=== PATIENT | male | born 1980 | race African-American/Black ===

== ENCOUNTER → 2018-06-20 | Outpatient (CLI) | payer BC ==
--- NOTE | 2018-06-20 10:05 | REP ---
Chest two views HISTORY: Hypertension Comparison: None The lungs are clear. The heart is normal in size. The pulmonary vasculature is normal in appearance. The bony structure is intact. IMPRESSION: No acute disease. Electronically Signed by Steve Braswell MD 06/20/2018 09:56 A
[2018-06-20 10:18] LABS: HEMATOCRIT 45.3 % (42.0-52.0); HEMOGLOBIN 15.3 g/dl (13.5-17.5); MEAN CORPUSCULAR HEMOGLOBIN 30.5 pg (27.0-33.0); MEAN CORPUSCULAR HGB CONC 33.8 g/dl (32.0-36.5); MEAN CORPUSCULAR VOLUME 90.2 fl (80.0-96.0); PLATELET COUNT, AUTOMATED 218 10^3/uL (150-450); RED BLOOD COUNT 5.02 10^6/uL (4.30-6.10); WHITE BLOOD COUNT 4.1 10^3/uL (4.0-10.0)
[2018-06-20 10:46] LABS: ALBUMIN 4.3 GM/DL (3.2-5.2); ALT/SGPT 22 U/L (12-78); BILIRUBIN,TOTAL 1.2 MG/DL (0.2-1.0); BLOOD UREA NITROGEN 11 MG/DL (7-18); CALCIUM LEVEL 9.1 MG/DL (8.5-10.1); CARBON DIOXIDE LEVEL 28 MEQ/L (21-32); CHLORIDE LEVEL 100 MEQ/L (98-107); CHOLESTEROL LEVEL 234 MG/DL (<200); CHOLESTEROL RISK RATIO 4.875 (<5); CREATININE FOR GFR 1.09 MG/DL (0.70-1.30); GLOMERULAR FILTRATION RATE > 60.0 (>60); GLUCOSE, FASTING 137 MG/DL (70-100); HDL CHOLESTEROL 48 MG/DL (>40); LDL CHOLESTEROL 166 MG/DL (<100); NON-HDL-C 186 MG/DL; POTASSIUM SERUM 4.3 MEQ/L (3.5-5.1); SODIUM LEVEL 137 MEQ/L (136-145); TOTAL PROTEIN 8.1 GM/DL (6.4-8.2); TRIGLYCERIDES LEVEL 102 MG/DL (<150)
[2018-06-20 10:47] LABS: TOTAL 25(OH) VITAMIN D 23.8 NG/ML (30.0-100.0)
[2018-06-20 10:48] LABS: TESTOSTERONE 496 NG/DL (241-827)
[2018-06-20 11:00] LABS: HEMOGLOBIN A1c 7.8 %
--- NOTE | 2018-06-20 12:21 | ECGEPIP ---
Stationary ECG Study [facility] Test Date: 2018-06-20 Pat Name: ALICE SEWELL Department: Room: - Gender: M Superintendent Measurement: : 1980 Requested By: Zhou Carey Order Number: [id number] Reading MD: Carrie Benitez Measurements Intervals [place] Rate: 74 P: 68 [place]: 156 QRS: 24 QRSD: 91 T: 40 QT: 350 QTc: 390 Interpretive Statements SINUS RHYTHM Possible old Inf/Post infarction DIFFUSE ST ELEV SUSPECT EARLY REPOLARIZATION OR POSSIBLE PERICARDITIS CLINICAL CORRELATION NO PRIOR Electronically Signed On 06-20-2018 12:21:15 EST by Carrie Benitez
== END ==
LOC: M LAB 09:10
PROVIDERS: ATTEND Family Medicine
DX: I10 Essential (primary) hypertension (principal); R53.83 Other fatigue; E03.9 Hypothyroidism, unspecified

== ENCOUNTER → 2018-10-05 | Outpatient (CLI) | payer BC ==
[2018-10-05 12:17] LABS: CHOLESTEROL RISK RATIO 3.2 (<5); THYROID STIMULATING HORMONE 1.13 uIU/ML (0.358-3.740)
[2018-10-05 12:25] LABS: TOTAL 25(OH) VITAMIN D 28.9 NG/ML (30.0-100.0)
== END ==
LOC: M LAB 11:11
PROVIDERS: ATTEND Family Medicine
DX: E03.9 Hypothyroidism, unspecified (principal)

== ENCOUNTER → 2018-10-07 | Outpatient (CLI) | payer BC ==
--- NOTE | 2018-10-07 13:51 | REP ---
Clinical: chest pain. Comparison: 06/20/2018. Technique: PA and lateral. Findings: The mediastinum and cardiac silhouette are normal. The lung oreilly are clear and without acute consolidation, effusion, or pneumothorax. The skeletal structures are intact and normal. Impression: 1. No acute cardiopulmonary process. Electronically Signed by Lj Carr MD 10/07/2018 01:42 P
== END ==
LOC: M RAD 13:27
PROVIDERS: ATTEND Physician Assistant
DX: R07.9 Chest pain, unspecified (principal); R53.83 Other fatigue

== ENCOUNTER → 2019-01-29 | Outpatient (CLI) | payer BC ==
[2019-01-29 15:39] LABS: HEMOGLOBIN A1c 5.8 %
[2019-01-29 15:54] LABS: CHOLESTEROL RISK RATIO 3.301 (<5); THYROID STIMULATING HORMONE 2.4 uIU/ML (0.358-3.740); THYROXINE (T4) 10.5 UG/DL (4.5-12.0); TOTAL T3 112.5 NG/DL (60.0-181.0)
== END ==
LOC: M LAB 14:45
PROVIDERS: ATTEND Family Medicine
DX: R53.83 Other fatigue (principal); E03.9 Hypothyroidism, unspecified; I10 Essential (primary) hypertension; E11.9 Type 2 diabetes mellitus without complications

== ENCOUNTER → 2019-02-18 | Outpatient (CLI) | payer BC ==
--- NOTE | 2019-02-18 16:26 | REP ---
Eight views cervical spine: 02/18/2019. Indication: Cervical pain. Findings: There is no cute fracture, subluxation or dislocation. There is no evidence of instability during dynamic testing. Vertebral body alignment is anatomic. Impression: Unremarkable cervical spine. Electronically Signed by Mikhail Varela DO 02/18/2019 04:19 P
== END ==
LOC: M RAD 14:34
PROVIDERS: ATTEND Family Medicine
DX: M19.90 Unspecified osteoarthritis, unspecified site (principal); M79.2 Neuralgia and neuritis, unspecified

== ENCOUNTER 2019-03-05 15:45 | Outpatient (RCR) | payer BC | END 2019-03-07 | LOC: M PT 15:45 | PROVIDERS: ATTEND Family Medicine | DX: Z51.89 Encounter for other specified aftercare (principal); M46.02 Spinal enthesopathy, cervical region ==

== ENCOUNTER 2019-03-27 15:40 | Outpatient (RCR) | payer BC | END 2019-04-06 | LOC: M PT 15:40 | PROVIDERS: ATTEND Family Medicine | DX: M65.28 Calcific tendinitis, other site (principal) ==